=== PATIENT | male | born 1970 | race Caucasian/White ===

== ENCOUNTER 2018-01-23 08:27 | Emergency (ER) | payer MEDICAID, OTHER ==
[~2018-01-23] VITALS: Ht 175.3 cm; Wt 78.0 kg
[~2018-01-23 08:27] MED LIST: CEPH-569 PO
[2018-01-23 12:33] VITALS: BP 106/80
== END 2018-01-23 12:44 | disposition home or self-care (01) ==
LOC: ER 08:42
DX: Z48.01 Encounter for change or removal of surgical wound dressing (principal)
CPT/HCPCS: 99283